=== PATIENT | female | born 1995 | race Two or more races ===

== ENCOUNTER 2022-02-07 23:26 | Emergency (ER) | payer OTHER ==
[~2022-02-07] VITALS: Ht 162.6 cm; Wt 63.5 kg
--- NOTE | 2022-02-08 00:11 | NUR ---
BIBSELF C/O FLU LIKE SYMPTOMS SINCE SATURDAY, TESTED COVID NEG ON SATURDAY. PT A/OX4. TOLERATING R/A WELL WITH NO SOB; RESP EVEN AND NON LABORED.
[2022-02-08 00:17] VITALS: BP 114/84
--- NOTE | 2022-02-08 00:20 | NUR ---
COVID AND INFLUENZA SWAB COLLECTED AND SENT TO LAB
[2022-02-08] MEDS ORDERED: BENZ-13 PO (00:57)
--- NOTE | 2022-02-08 01:31 | NUR ---
Patient discharged to home in stable condition. Written and verbal after care instructions given. Patient verbalizes understanding of instruction.
--- NOTE | 2022-02-08 01:31 | NUR ---
Patient discharged to home in stable condition. RX Written and verbal after care instructions given. Patient verbalizes understanding of instruction. PT ambulatory with a steady gait
== END 2022-02-08 01:32 | disposition home or self-care (01) ==
LOC: ER 23:34
DX: J06.9 Acute upper respiratory infection, unspecified (principal); Z20.822 Contact with and (suspected) exposure to COVID-19
CPT/HCPCS: 99283; 87426; 87804; C9803

== ENCOUNTER 2024-08-28 03:29 | Emergency (ER) | payer OTHER ==
[~2024-08-28] VITALS: Ht 162.6 cm; Wt 67.1 kg
[~2024-08-28 03:29] MED LIST: BENZ-13 PO
[2024-08-28 03:45] VITALS: BP 135/87; TEMP 98.2; O2SAT 97
[2024-08-28 04:08] LABS: ADD URINE CULTURE YES; APPEARANCE,URINE TURBID (CLEAR); BACTERIA,URINE Few /HPF (None Seen); BILIRUBIN,URINE NEGATIVE (NEGATIVE); BLOOD, URINE 3+ Ery/uL (NEGATIVE); COLOR,URINE RED (YELLOW); KETONES,URINE 1+ mg/dL (NEGATIVE); LEUKOCYTE ESTERASE ,URINE 2+ (NEGATIVE); NITRITE, URINE POSITIVE (NEGATIVE); PROTEIN,URINE 3+ mg/dl (NEGATIVE); RBC,URINE TOO NUMEROUS TO COUN /HPF (0-2); SQUAMOUS EPITHELIAL CELL,UR Rare /HPF (None Seen); UGLUCOSE TRACE mg/dL (NEGATIVE)
[2024-08-28 04:09] LABS: PREGNANCY TEST URINE QUAL NEGATIVE (NEGATIVE)
[2024-08-28] MEDS ORDERED: NITR100C6 PO (04:27)
[2024-08-28] MEDS: NITROFURANTOIN/MONOHYDRATE MACROCRYSTALS 100 MG CAPSULE PO ONE (04:31)
== END 2024-08-28 04:36 | disposition home or self-care (01) ==
LOC: ER 03:30
DX: N39.0 Urinary tract infection, site not specified (principal); M54.50 Low back pain, unspecified; R10.2 Pelvic and perineal pain; R35.0 Frequency of micturition; F17.200 Nicotine dependence, unspecified, uncomplicated
CPT/HCPCS: 81001; 84703-TC; 87086-TC